=== PATIENT | female | born 1955 | race Caucasian/White ===

== ENCOUNTER 2016-09-03 03:21 | Inpatient (IN) | payer OTHER ==
[~2016-09-03] VITALS: Ht 157.5 cm; Wt 89.4 kg
[~2016-09-03 03:21] MED LIST: ALBUTEROL2.5 MG/3 M INH/SOL; AZITHROMYCIN500 M3 PO; CHLORTHALIDONE25 M1 PO; COMBIVENT RESPIM4 GM PO; GUAIFENESIN ER600 MG PO; HUMALOG KW100 UNIT/1 SC; LANTUS SOL100 UNIT/1 SC; METFORMIN HCL750 M1 PO; MONTELUKAST SOD10 M1 PO; PREDNISONE10 M2 PO; SYMBICORT 16010.2 GM INH
--- NOTE | 2016-09-03 03:34 | NUR ---
SATS 96% AT THIS TIME, RESP TREATMENT IN PROGRESS
--- NOTE | 2016-09-03 03:34 | NUR ---
60 YO FEMALE TO ER FOR DIFF BREATHING. WAS SEEN IN WALK IN 2 DAYS AGO FOR PRODUCTIVE COUGH. WAS GIVEN PREDNISONE. PT ARRIVES TO ER ROOM 7, RA SATS 88%. RR 36, HR 120s ON MONITOR. PT PLACED ON NONREBREATHER, IGLESIA ROSA. TO BEDSIDE. PT DENIES PAIN. IV EST TO L HAND. PT MEDICATED WITH SOLUMEDROL AND MAGNESIUM INFUSING PER ORDER.
--- NOTE | 2016-09-03 03:53 | ED DYSPNEA/ASTHMA COMPLAINT ---
History of Present Illness General Chief Complaint: Wheezing/Asthma Stated Complaint: DIFF BREATHING 02 SAT 86% Source: patient, family, old records Exam Limitations: clinical condition Vital Signs & Intake/Output Vital Signs & Intake/Output Vital Signs Date Time Temp Pulse Resp B/P B/P Pulse O2 O2 Flow FiO2 Mean Ox Delivery Rate 09/03 512 98.6 96 20 143/80 98 Nasal 5.0L Cannula 09/03 035 98 09/03 034 97 09/03 336 98 Non ReBreather 09/03 033 95 09/03 0330 88 Room Air 09/03 0328 96.8 120 36 182/91 88 Room Air Allergies Coded Allergies: Penicillins (Severe, RASH 08/15/15) Reconcile Medications Albuterol Sulfate 2.5 MG/3 ML VIAL.NEB 1 Vial INH/EMMA Q4P PRN BREATHING PROBLEMS (Reported) Azithromycin 500 MG TABLET 500 MG PO DAILY@1630 BRONCHITIS Budesonide/Formoterol Fumarate (Symbicort 160-4.5 Mcg Inhaler) 10.2 GM HFA.AER.AD 2 PUF INH BID ASTHMA Chlorthalidone 25 MG TABLET 1 TAB PO DAILY HEART (Reported) Guaifenesin (Guaifenesin ER) 600 MG TAB.ER.12H 600 MG PO BID COUGH Insulin Glargine,Hum.rec.anlog (Lantus Solostar) 100 UNIT/1 ML INSULN.PEN 36 U SC QPM DIABETES (Reported) Insulin Lispro (Humalog Kwikpen U-100) (Unknown Strength) INSULN.PEN 0 SC SEE SLIDING SCALE DIABETES (Reported) Premeal blood sugar: less than 80: no insulin 80-150: no insulin 151-200: 2 units 201-250: 4 units 251-300: 6 units 301-350: 8 units 351-400: 10 units more than 400: 12 units Ipratropium/Albuterol Sulfate (Combivent Respimat Inhal [place]) 4 GM MIST.INHAL 2 PUFF PO BID BREATHING PROBLEMS (Reported) Metformin HCl (Metformin HCl ER) 750 MG TAB.ER.24H 2 TAB PO QPM DIABETES ( Reported) Montelukast Sodium 10 MG TABLET 10 MG PO AT BEDTIME ASTHMA Prednisone 10 MG TABLET 6 TAB PO DAILY COPD 08/18-8: 6 TABS 08/20-08/21: 5 TABS 08/22-12: 4 TABS 6/13-14: 3 TABS 15-16: 2 TABS 08/28-18: 1 TAB Triage Note: 60 YO FEMALE TO ER FOR DIFF BREATHING. WAS SEEN IN WALK IN 2 DAYS AGO FOR PRODUCTIVE COUGH. WAS GIVEN PREDNISONE. PT ARRIVES TO ER ROOM 7, RA SATS 88%. RR 36, HR 120s ON MONITOR. PT PLACED ON NONREBREATHER, REESP PAGED. MD TO BEDSIDE. PT DENIES PAIN. IV EST TO L HAND. PT MEDICATED WITH SOLUMEDROL AND MAGNESIUM INFUSING PER ORDER. Triage Nurses Notes Reviewed? yes Duration: day(s):, constant, continues in ED, getting worse Timing: recent history Severity: severe Activities at Onset: rest Prior Episodes/Possible Cause: occasional episodes Modifying Factors: Improves With: rest. Worsens With: movement. Associated Symptoms: cough, wheezing, weakness LMP (ages 10-50): post menopausal : No Patient currently breastfeeds: No HPI: 2 days prior to admission spouse reports patient had productive cough and increasing wheezing prescribed prednisone at a walk-in center. There has been no fever chills nausea vomiting diarrhea chest pain headache dysuria rash bleeding. Past History Travel History Traveled to [place] past 21 day No Medical History Any Pertinent Medical History? 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 No Review of Systems Review of Systems Constitutional: Reports: no symptoms. EENTM: Reports: no symptoms. Respiratory: Reports: see HPI, cough, short of breath, sputum production. Cardiovascular: Reports: no symptoms. GI: Reports: no symptoms. Genitourinary: Reports: no symptoms. Musculoskeletal: Reports: no symptoms. Skin: Reports: no symptoms. Neurological/Psychological: Reports: no symptoms. Hematologic/Endocrine: Reports: no symptoms. Immunologic/Allergic: Reports: no symptoms. All Other Systems: Reviewed and Negative Physical Exam Physical Exam General Appearance: well developed/nourished, alert, awake, anxious, severe distress, thin Head: atraumatic, normal appearance Eyes: Bilateral: normal appearance, PERRL, EOMI. Ears, Nose, Throat: normal pharynx, normal ENT inspection, hearing grossly normal Neck: normal inspection, supple, full range of motion, no midline tenderness Respiratory: chest non-tender, no respiratory distress Cardiovascular: regular rate/rhythm, normal peripheral pulses, tachycardia, norml femoral pulses equa Peripheral Pulses: 4+ carotid (R), 4+ carotid (L) Gastrointestinal: normal bowel sounds, soft, non-tender, no organomegaly Extremities: normal inspection, normal capillary refill, normal range of motion, no edema Neurologic/Psych: no motor/sensory deficits, awake, alert, oriented x 3, normal gait, normal mood/affect, transport 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 No Severe Sepsis Present: No Septic Shock Present: No Progress Differential Diagnosis: asthma, bronchitis, COPD, pneumonia Plan of Care: Orders Procedure Date/time Status Consistent Carbohydrate 3 09/03 B Active US-LIMITED ABDOMEN 09/03 0533 Active LOWER RESPIRATORY CULTURE 09/03 0525 Active Patient Data 09/03 0523 Active TRC EVALUATION (GEN) 09/03 0520 Active FingerStick- Glucose 09/03 0515 Active OXYGEN SETUP (GEN) 09/03 0459 Active Saline Lock 09/03 045 Active Admit to inpatient 09/03 0459 Active Vital Signs 09/03 0459 Active Activity/Ambulation 09/03 0459 Active BLOOD CULTURE 09/03 0459 Active Code Status 09/03 0459 Active Intake & Output 09/03 0342 Active TROPONIN LEVEL 09/03 0331 Complete MAGNESIUM 09/03 0331 Complete COMPREHENSIVE METABOLIC PANEL 09/03 0331 Complete CBC WITHOUT DIFFERENTIAL 09/03 033 Complete Current Medications Sig/Fred Start time Last Medication Dose Stop Time Status Admin Budesonide/ 2 PUF BID 09/03 1000 UNVr Formoterol Fumarate (Symbicort) Guaifenesin 600 MG BID 09/03 1000 UNVr (Mucinex) Insulin Aspart 0 TIDAC 09/03 0800 UNVr (NovoLOG) Methylprednisolone 40 MG Q8 09/03 0600 UNVr (Solumedrol) Albuterol Sulfate 3 ML Q4P PRN 09/03 529 UNVr (Proventil) Insulin Detemir 30 UNITS .[AT BED TIME] 09/03 529 UNVr (Levemir) Doxycycline Hyclate 100 MG ONCE ONE 09/03 0500 AC 09/03 (Vibramycin) 09/03 06 0539 Sodium Chloride 100 ML (Normal Saline 0.9%) Sodium Chloride 1,000 ML BOLUS ONE 09/03 050 AC 09/03 (Normal Saline 0.9%) 09/03 0559 0514 Laboratory Tests 09/03/16 0350: Anion Gap 17 H, Estimated GFR > 60, BUN/Creatinine Ratio 32.0 H, Glucose 497 H, Calcium 9.1, Magnesium 2.6 H, Total Bilirubin 1.4 H, AST 218 H, ALT 187 H , Alkaline Phosphatase 113, Troponin I < 0.01, Total Protein 7.5, Albumin 4.6, Globulin 2.9, Albumin/Globulin Ratio 1.6, CBC w Diff NO MAN DIFF REQ, RBC 4.55, MCV 88.9, MCH 29.5, RDW 13.4, MPV 7.7, Gran % 89.2 H, Lymphocytes % 8.2 L, Monocytes % 2.3, Eosinophils % 0.2, Basophils % 0.1, Absolute Granulocytes 9.7 H, Absolute Lymphocytes 0.9 L, Absolute Monocytes 0.2, Absolute Eosinophils 0, Absolute Basophils 0, PUBS MCHC 33.2 Microbiology 09/03 524 LOWER RESP: Respiratory Culture - COLB 09/03 524 LOWER RESP: Gram Stain - COLB 09/03 522 BLOOD: Blood Culture - RECD 09/03 514 BLOOD: Blood Culture - RECD Diagnostic Imaging: Viewed by Me: Radiology Read. Discussed w/RAD: Radiology Read. CXR Impression: No focal consolidation. Prominent central interstitium may reflect acute or chronic bronchitis; mild central congestion would be difficult to exclude in the proper clinical setting. Initial ED EKG: normal axis, normal intervals, normal p-waves, normal QRS complex, normal sinus rhythm, nonspecific ST T wave chg Prior EKG: unchanged Rhythm Strip: sinus tachycardia Departure Departure Disposition: STILL A PATIENT Condition: Stable Clinical Impression Primary Impression: Asthma with acute exacerbation in adult Secondary Impressions: Bronchitis Referrals: JULIUS PRUITT MD Departure Forms: Customer Survey General Discharge Information Admission Note Spoke With: OPAL ABRAHAM MD Documentation of Exam: Documentation of any treatments & extenuating circumstances including Concerns Regarding Discharge (functional status, medication knowledge or non-compliance, living conditions, etc.) that warrant an admission rather than observation: Supplemental oxygen beta agonist nebs IV steroids follow cultures pulmonary evaluation medication adjustment continuing care discharge planning Critical Care Note Critical Care Note Critical Care Time: non-applicable
--- NOTE | 2016-09-03 03:53 | NUR ---
BLOODWORK DRAWN AND SENT TO LAB.
--- NOTE | 2016-09-03 04:02 | NUR ---
RESP TREATMENT COMPLETE AT THIS TIME, RR 22 AT THIS TIME. PT PLACED ON NASAL CANNULA 5L. SATS 97-98% AT THIS TIME. PT ABLE TO SPEAK FULL SENTANCES AND STATES SHE IS FEELING MUCH BETTER.
[2016-09-03 04:03] LABS: ABSOLUTE BASOPHIL COUNT 0 /CUMM (0.0-0.2); ABSOLUTE EOSINOPHIL COUNT 0 /CUMM (0.0-0.7); ABSOLUTE GRANULOCYTE CT 9.7 /CUMM (1.4-6.5); ABSOLUTE LYMPH COUNT 0.9 /CUMM (1.2-3.4); ABSOLUTE MONOCYTE COUNT 0.2 /CUMM (0.10-0.60); BASOPHIL % 0.1 % (0.0-2.0); EOSINOPHIL % 0.2 % (0-5); GRANULOCYTE % 89.2 % (42.2-75.2); HEMATOCRIT 40.4 % (37-47); MEAN CORPUSCULAR HGB 29.5 PG (27.0-31.0); MEAN CORPUSCULAR HGB CONC 33.2 G/DL (33.0-37.0); MEAN CORPUSCULAR VOLUME 88.9 FL (81.0-99.0); MEAN PLATELET VOLUME 7.7 FL (7.4-10.4); PLATELET COUNT 234 /CUMM (130-400); RBC DISTRIBUTION WIDTH 13.4 % (11.5-14.5); RED BLOOD CELL CT 4.55 /CUMM (4.20-5.40); WHITE BLOOD CELL COUNT 10.9 /CUMM (4.8-10.8)
--- NOTE | 2016-09-03 04:26 | NUR ---
PT UP TO BEDSIDE COMMODE. SATS REMAINED 95% ON 5L OXYGEN. PT REMAINS ABLE TO SPEAK FULL SENTANCES THROUGHOUT MOVING AROUND. HR 100 ON MONITOR.
--- NOTE | 2016-09-03 04:42 | RADIOLOGY REPORT ---
EXAMINATION: XR PORTABLE CHEST CLINICAL INFORMATION: Shortness of breath, wheezing, history of asthma COMPARISON: 08/18/2015 TECHNIQUE: Portable frontal view of the chest was obtained. FINDINGS: Lung volumes are symmetric. No focal consolidation is seen. There is prominence of the central interstitium, which could reflect sequelae of bronchitis. No evidence of pneumothorax, pleural effusion, or overt pulmonary edema. The cardiac silhouette is prominent. No acute osseous findings are seen. IMPRESSION: No focal consolidation. Prominent central interstitium may reflect acute or chronic bronchitis; mild central congestion would be difficult to exclude in the proper clinical setting.
--- NOTE | 2016-09-03 05:14 | NUR ---
NS BOLUS INFUSING PER EMAR. TOLERATING WELL. PATIENT MEDICATED W/ 10 UNITS NOVOLIN R IV PER EMAR. TOLERATED WELL. PHARMACY PREPARING DOXYCYCLINE IV.
--- NOTE | 2016-09-03 05:34 | History & Physical ---
JAE GRAVES 09/03/16 0533: General Information and HPI MD Statement: I have seen and personally examined SINGH SANTIAGO and documented this H&P. The patient is a 60 year old F who presented with a patient stated chief complaint of SHORTNESS OF BREATH Source of Information: patient, old records Exam Limitations: no limitations History of Present Illness: 60 year old woman, former smoker, past medical history significant for insulin dependant diabetes mellitus questionable COPD, history of asthma followed by Dr. Warren, no h/o of previous intubation in the past, history of pancreatic cyst, JASMINE (imaging done at [facility] last year) and hypertension comes to ED for evaluation of shortness of breath. Her symptoms started on Tuesday with a non productive cough which became a harsh barking type of cough with clear sputum the following day. She went to urgent care on Tuesday as was given medrol dee and cough suppressant. She felt no relief and started to have wheezing and her sputum became yellowish yesterday. Went to walk in yesterday and was not given anything. She continued to have progressively worsening shortness of breath and wheezing till she decided to come to the ED at 3:30am. 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 Last week she had non bloody self-limiting diarrhea of 5 day duration after eating at [employer]. Denies fever, chills, chest pain, palpitations, headache, n/v/d, constipation or abdominal pain. Allergies/Medications Allergies: Coded Allergies: Penicillins (Severe, RASH 08/15/15) Home Med list Albuterol Sulfate 2.5 MG/3 ML VIAL.NEB 1 Vial INH/EMMA Q4P PRN BREATHING PROBLEMS (Reported) Azithromycin 500 MG TABLET 500 MG PO DAILY@1630 BRONCHITIS Budesonide/Formoterol Fumarate (Symbicort 160-4.5 Mcg Inhaler) 10.2 GM HFA.AER.AD 2 PUF INH BID ASTHMA Chlorthalidone 25 MG TABLET 1 TAB PO DAILY HEART (Reported) Guaifenesin (Guaifenesin ER) 600 MG TAB.ER.12H 600 MG PO BID COUGH Insulin Glargine,Hum.rec.anlog (Lantus Solostar) 100 UNIT/1 ML INSULN.PEN 36 U SC QPM DIABETES (Reported) Insulin Lispro (Humalog Kwikpen U-100) (Unknown Strength) INSULN.PEN 0 SC SEE SLIDING SCALE DIABETES (Reported) Premeal blood sugar: less than 80: no insulin 80-150: no insulin 151-200: 2 units 201-250: 4 units 251-300: 6 units 301-350: 8 units 351-400: 10 units more than 400: 12 units Ipratropium/Albuterol Sulfate (Combivent Respimat Inhal [place]) 4 GM MIST.INHAL 2 PUFF PO BID BREATHING PROBLEMS (Reported) Metformin HCl (Metformin HCl ER) 750 MG TAB.ER.24H 2 TAB PO QPM DIABETES ( Reported) Montelukast Sodium 10 MG TABLET 10 MG PO AT BEDTIME ASTHMA Prednisone 10 MG TABLET 6 TAB PO DAILY COPD 08/18-08/19: 6 TABS 08/20-08/21: 5 TABS 08/22-08/23: 4 TABS 08/24-08/25: 3 TABS 08/26-16: 2 TABS 08/28-08/29: 1 TAB Compliance With Home Meds: GOOD Past History Travel History Traveled to [place] past 21 day No Medical History Neurological: NONE EENT: NONE Cardiovascular: HEART MURMUR Respiratory: asthma Gastrointestinal: NONE Hepatic: NONE Renal: NONE Musculoskeletal: NONE Psychiatric: NONE Endocrine: diabetes Blood Disorders: NONE Cancer(s): NONE 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 spouse Services at Home: None Primary Language: Telugu Smoking Status: Former Smoker ETOH Use: occasional use Functional Ability ADLs Independent: dressing, eating, toileting, bathing. Ambulation: independent IADLs Independent: shopping, housework, finances, food prep, telephone, transportation , medication admin. Review of Systems Review of Systems Constitutional: Denies: chills, diaphoresis, fever, malaise, weakness, unexplained weight loss. Cardiovascular: Denies: chest pain, edema, orthopena, palpitations, peripheral edema, syncope. Respiratory: Reports: cough, short of breath, sputum production, wheezing. Denies: hemoptysis, orthopnea, stridor. GI: Denies: abdominal pain, bloating, constipation, diarrhea, distention, bowel incontinence, melena, nausea, bloody stool, changes in stool, vomiting, steatorrhea. Genitourinary: Denies: discharge, dysuria, frequency, hematuria, hesitation, nocturia, pain, urgency. Exam & Diagnostic Data Last 24 Hrs of Vital Signs/I&O Vital Signs Date Time Temp Pulse Resp B/P B/P Pulse O2 O2 Flow FiO2 Mean Ox Delivery Rate 09/03 0513 98.6 96 20 143/80 98 Nasal 5.0L Cannula 09/03 0356 98 09/03 0345 97 09/03 0337 98 Non ReBreather 09/03 0334 95 09/03 0330 88 Room Air 09/03 0328 96.8 120 36 182/91 88 Room Air Intake & Output 09/03 0800 09/03 0000 09/02 1600 Intake Total 0 Output Total Balance 0 Intake, Oral 0 Patient 197 lb Weight Weight Reported by Patient Measurement Method Physical Exam General Appearance Alert, Oriented X3, Cooperative, Mild Distress Skin psoriatic plaques on b/l arms and legs HEENT Atraumatic, PERRLA, dry mucous membranes Neck Supple Lymphatic Cervical nl Cardiovascular Normal S1, Normal S2, tachycardic Lungs b/l coarse rhonchi and exp wheeze heard in all areas Abdomen No Tenderness, distended Extremities No Edema Last 24 Hrs of Labs/Tomasz: Laboratory Tests 09/03/16 0600: Sodium Cancelled, Potassium Cancelled, Chloride Cancelled, Carbon Dioxide Cancelled, Anion Gap Cancelled, BUN Cancelled, Creatinine Cancelled, BUN/ Creatinine Ratio Cancelled, CBC w Diff Cancelled, WBC Cancelled, RBC Cancelled, Hgb Cancelled, Hct Cancelled, MCV Cancelled, MCH Cancelled, RDW Cancelled, Plt Count Cancelled, MPV Cancelled, PUBS MCHC Cancelled 09/03/16 0350: Anion Gap 17 H, Estimated GFR > 60, BUN/Creatinine Ratio 32.0 H, Glucose 497 H, Calcium 9.1, Magnesium 2.6 H, Total Bilirubin 1.4 H, AST 218 H, ALT 187 H , Alkaline Phosphatase 113, Troponin I < 0.01, Total Protein 7.5, Albumin 4.6, Globulin 2.9, Albumin/Globulin Ratio 1.6, CBC w Diff NO MAN DIFF REQ, RBC 4.55, MCV 88.9, MCH 29.5, RDW 13.4, MPV 7.7, Gran % 89.2 H, Lymphocytes % 8.2 L, Monocytes % 2.3, Eosinophils % 0.2, Basophils % 0.1, Absolute Granulocytes 9.7 H, Absolute Lymphocytes 0.9 L, Absolute Monocytes 0.2, Absolute Eosinophils 0, Absolute Basophils 0, PUBS MCHC 33.2 Microbiology 09/03 524 LOWER RESP: Respiratory Culture - COLB 09/03 524 LOWER RESP: Gram Stain - COLB 09/03 522 BLOOD: Blood Culture - RECD 09/03 514 BLOOD: Blood Culture - RECD Diagnostic Data CXR Results FINDINGS: Lung volumes are symmetric. No focal consolidation is seen. There is prominence of the central interstitium, which could reflect sequelae of bronchitis. No evidence of pneumothorax, pleural effusion, or overt pulmonary edema. The cardiac silhouette is prominent. No acute osseous findings are seen. IMPRESSION: No focal consolidation. Prominent central interstitium may reflect acute or chronic bronchitis; mild central congestion would be difficult to exclude in the proper clinical setting. Assessment/Plan Assessment: 60 year old woman, former smoker, past medical history significant for insulin dependant diabetes mellitus questionable COPD, history of asthma followed by Dr. Warren, no h/o of previous intubation in the past, history of pancreatic cyst, JASMINE (imaging done at [facility] last year) and hypertension comes to ED for evaluation of shortness of breath. In ED she was found to be desaturating to 88% on RA and improved on non rebreather and nebs to 98% on 5L NC. Labs significant for Transaminitis, elevated serum glucose, CXR significant for prominent central interstitium may reflect acute or chronic bronchitis. As Ranked By This Provider Problem List: 1. Asthma with acute exacerbation in adult Assessment/Plan -Acute asthma exacerbation secondary to possible bronchitis -Admit to tele for continuous pulse oximetry -ATC TRC/nebs, continue supplemental oxgen -Monitor peak expiratory flow rate daily -Recieved 125 mg of IV Solumedrol in ED, will continue with IV 40mg daily -Given one time dose of Doxycyline, will continue with IV azithromycin, f/up bld cultures -Pulmonary consult in am ( sees Dr. Warren and saw him last 6 mths ago) -Her Last PFt was in 2012 and showed a mixed combined restrictive and obstructive pattern. 2. Transaminitis Assessment/Plan Had imaging done one year ago at [facility] and was told she has fatty liver along with a pancreatic cyst and was told to lose weight. she is aware that her liver enz are usually elevated. Denies worsening distension or abdominal pain Obtain records from [facility] f/up abd US and trend Liver enz 3. Diabetes Assessment/Plan -Accuchecks -Continue long acting insulin and ISS -Elevated glucose possibly secondary to recent steroid use -Diabetic diet -f/up HA1c 4. DVT prophylaxis Assessment/Plan sc heparin 5. Full code status Core Measures/Miscellaneous Acute Coronary Syndrome ACS Diagnosis: No Cerebrovascular Accident CVA/TIA Diagnosis: No Congestive Heart Failure CHF Diagnosis: No VTE (View Protocol) VTE Risk Factors: Acute medical illness, Age > 40 No [facility] VTE prophylaxis d/t: No contraindications No VTE Pharm Prophylaxis d/t: No contraindications VTE Diagnosis: No VTE Type: NONE VTE Confirmed by (Test): NONE Sepsis (View Protocol) Severe Sepsis Present: No Septic Shock Septic Shock Present: No Miscellaneous Documentation Attending Case Discussed With: OPAL ABRAHAM MD Primary Care Physician: PATIENT HAS NO PRIMARY CARE DR Patient sees these Specialists Dr. Warren Level of Patient Care: Telemetry NEETA BETANCOURT 09/03/16 0645: Resident Review Statement Resident Statement: examined this patient, discussed with internal combustion engine assembler, agreed with internal combustion engine assembler, reviewed images Other Findings: Patient is 60 year old female with PMH of asthma, diabetes, pancreatic cyst, colon adenoma came with chief complain of difficulty breathing. Patient states that since past 4 days, she has been having difficulty breathing and she started wheezing on Tuesday. At that time she went to urgent care and was prescribed Medrol dose pack and instructed to come to ER. Patient went home and she reports that her difficulty breathing has been worsening since then. Labs and Vitals as above CXR significant for acute v/s chronic bronchitis. Patient is admitted to telemetry for continuous pulse oximetry. Please follow up BC x 2 and sputum culture. Will start azithromycin for 5 days. Patient got solumedrol 125 mg in ER, will continue on 40 mg q8. TRC nebs as needed. Patient continued on her home medications. Patient has very tense abdomen, she had diarrhea last week after eating something from outside. The diarrhea and abdominal cramps have improved. Patient states that her abdomen is like that since [address] now[address] had [address] abdomen done at [facility] 2 years ago, please obtain records. Will get usg abdomen to evaluate biliary tree and liver mnorphology given her transaminitis. DVT ppx SC heprin Patient is full code. ANH BAPTISTE,ABEL 09/03/16 1209: Attending MD Review Statement Attending Statement Attending MD Statement: examined this patient, discuss w/resident/PA/SOIL ENGINEER, agreed w/resident/PA/SOIL ENGINEER, reviewed EMR data (avail), discussed with nursing, discussed with case mgmt Attending Assessment/Plan: 60-year-old female past medical history of COPD actively follows with Dr. Warren in the outpatient setting, had a PCP associated with [facility] who recently and has an alumnae secretary associated with [facility]. She is here with what appears to be an acute COPD exacerbation and she failed outpatient Medrol Dosepak given to her by the urgent care clinic. In addition she also has evidence of uncontrolled diabetes with mild anion gap acidosis and severe hyperglycemia. The chest x-ray is negative for pneumonia but does show some interstitial vascular congestion and probable bronchitis. At this point will bring her in and treat her as a COPD exacerbation with IV steroids and will also give her azithromycin to cover for the possibility of bacterial bronchitis. We do not have her Trullicity which she takes for her diabetes and with the steroids on board she will need additional insulin coverage. Will give her long-acting and short-acting insulin and aggressive IV hydration until the hyperglycemia and anion gap resolve. Will check labs again and specifically check acetone as well. I don't think this is heart failure, she is got all the clinical signs and symptoms of a COPD exacerbation and at this point will check a BNP but will hold off on an echocardiogram. Put her on DVT prophylaxis, follow the abdominal ultrasound for the elevated transaminases which she says is secondary to fatty liver and follow closely.
--- NOTE | 2016-09-03 05:41 | NUR ---
DOXYCYCLINE RECIEVED FROM PHARMACY. DOXYCYCLINE INFUSUNG AT 100ML/HR PER EMAR. TOLERATING WELL.
--- NOTE | 2016-09-03 05:49 | NUR ---
HOUSE STAFF AT BESIDE FOR EVAL
--- NOTE | 2016-09-03 06:04 | NUR ---
REPORT GIVEN TO RN, PT WILL GO TO ROOM 188
--- NOTE | 2016-09-03 06:12 | NUR ---
Emergency Dept UC Admit Note: To be admitted to [facility] by DR. ABRAHAM with ASTHMA EXACERBATION ,HYPOXIA as the diagnosis, to TELE 1NO #[id number] location. Nursing Donor Services Manager and admitting notified 09/03/16 at 0524
[2016-09-03 06:40] VITALS: BP 128/78
[2016-09-03 08:55] VITALS: BP 144/90
--- NOTE | 2016-09-03 09:46 | ULTRASOUND REPORT ---
EXAMINATION: US ABDOMEN LIMITED CLINICAL INFORMATION: Elevated LFTs and bilirubin.. COMPARISON: None. TECHNIQUE: Real-time imaging of the right upper quadrant abdominal viscera. Technically challenging exam secondary to patient body habitus and bowel gas. FINDINGS: PANCREAS: The partially visualized pancreatic body is unremarkable, the head and tail are secured by bowel gas. LIVER: There is diffuse increased liver parenchymal echogenicity. The liver is normal in size and contour. No biliary ductal dilatation. GALLBLADDER: Normal. The gallbladder is physiologically distended without evidence of stones, sludge, polyps, wall thickening or pericholecystic fluid. COMMON BILE DUCT: Normal in caliber measuring 0.42 cm in diameter. RIGHT KIDNEY: Normal. No hydronephrosis. No renal calculi or focal parenchymal lesions. The kidney measures 9.7 cm in maximum dimension. FREE FLUID: None. IMPRESSION: Diffusely increased hepatic echotexture, this can be seen in hepatic steatosis or developing fibrosis. The pancreas is not well visualized.
--- NOTE | 2016-09-03 11:45 | NUR ---
PT WAS NEW ADMISSION THIS AM. WAITING FOR MORNING MEDS TO GIVE TO PT. MISSING MED REQUEST SENT TO PHARMACY AT 10:45. CALL PLACED TO [facility] PHARMACIST AT 11:25 REQUESTING MEDS. STATES WILL SEND MEDS ANGELIA
--- NOTE | 2016-09-03 12:09 | Admission Certification ---
Admission Certification Certification Statement - As attending physician, I certify that at the time of - admission, based on clinical presentation, severity of - symptoms, need for further diagnostic testing and - therapeutic interventions, and risk of adverse outcomes - without in-hospital treatment, in my clinical assessment, - this patient requires an acute hospital stay for a minimum - of two nights or longer. I have also considered psychsocial - factors such as support system, advanced age, financial - issues, cognitive issues, and failed out-patient treatments, - past re-admission history, safety of patient, and lack of - compliance as applicable. Specific rationale supporting this admission is: Acute COPD exacerbation failed outpatient oral steroids.
--- NOTE | 2016-09-03 14:57 | PN- Housestaff ---
Subjective Follow-up For: Acute COPD exacerbation Subjective: Patient is feeling little improved. She is still on 5 L of oxygen by nasal cannula. Denies any chest pain or discomfort. Review of Systems Constitutional: Reports: see HPI. Objective Last 24 Hrs of Vital Signs/I&O Vital Signs Date Time Temp Pulse Resp B/P B/P Pulse O2 O2 Flow FiO2 Mean Ox Delivery Rate 09/03 1032 Nasal 2.0L Cannula 09/03 0855 97.8 99 20 144/90 99 Nasal 5.0L Cannula 09/03 0800 97 Nasal 5.0L Cannula 09/03 0640 Nasal 5.0L Cannula 09/03 0640 97.7 96 24 128/78 98 Nasal 5.0L Cannula 09/03 0513 98.6 96 20 143/80 98 Nasal 5.0L Cannula 09/03 0356 98 09/03 0345 97 09/03 0337 98 Non ReBreather 09/03 0334 95 09/03 0330 88 Room Air 09/03 0328 96.8 120 36 182/91 88 Room Air Intake & Output 09/03 1600 09/03 0800 09/03 0000 Intake Total 1120 0 Output Total 250 Balance 870 0 Intake, IV 400 Intake, Oral 720 0 Output, Urine 250 Patient 197 lb Weight Weight Reported by Patient Measurement Method Physical Exam General Appearance: Alert, Oriented X3, Cooperative, No Acute Distress Neck: Supple Cardiovascular: Regular Rate, No Murmurs Lungs: bilateral rhonchi and wheezes Abdomen: Normal Bowel Sounds, Soft, No Tenderness Extremities: No Edema Current Medications: Current Medications Sig/Fred Start time Last Medication Dose Route Stop Time Status Admin Albuterol Sulfate 3 ML EVERY 4 HRS/AWAKE 09/03 1200 AC 09/03 INH 1045 Albuterol Sulfate 3 ML Q4P PRN 09/03 0530 DC INH Albuterol Sulfate 3 ML ONCE ONE 09/03 0330 DC 09/03 INH 09/03 0331 0337 Albuterol Sulfate 3 ML ONCE ONE 09/03 0330 DC 09/03 INH 09/03 0331 0337 Albuterol Sulfate 3 ML ONCE ONE 09/03 0330 DC 09/03 INH 09/03 0331 0337 Atorvastatin Calcium 20 MG 1700 09/03 1700 AC PO Azithromycin 500 MG DAILY 09/03 1000 AC 09/03 Sodium Chloride 250 ML IV 1215 Budesonide/ 2 PUF BID 09/03 1000 AC 09/03 Formoterol Fumarate INH 1215 Doxycycline Hyclate 100 MG ONCE ONE 09/03 0500 DC 09/03 Sodium Chloride 100 ML IV 09/03 0605 0539 Guaifenesin 600 MG BID 09/03 1000 AC 09/03 PO 1215 Heparin Sodium 5,000 UNIT Q8 09/03 1400 AC 09/03 (Porcine) SC 1348 Insulin Aspart 0 TIDAC 09/03 1200 AC 09/03 SC 1139 Insulin Aspart 0 TIDAC 09/03 0800 DC SC Insulin Detemir 30 UNITS AT BEDTIME 09/03 2200 AC SC Insulin Human Regular 0 Q6 09/03 0806 DC 09/03 SC 0819 Insulin Human Regular 10 UNITS ONCE ONE 09/03 0500 DC 09/03 IV 09/03 0501 0514 Ipratropium [place] 2.5 ML EVERY 4 HRS/AWAKE 09/03 1200 AC 09/03 INH 1045 Ipratropium [place] 2.5 ML BID PRN 09/03 0630 DC INH Ipratropium [place] 2.5 ML ONCE ONE 09/03 0330 DC 09/03 INH 09/03 0331 0336 Magnesium Sulfate 2 GM ONCE ONE 09/03 0330 DC 09/03 IV 09/03 0331 0334 Methylprednisolone 40 MG Q8 09/03 0600 AC 09/03 IV 1347 Methylprednisolone 0 .STK-MED ONE 09/03 0332 DC .ROUTE Methylprednisolone 125 MG ONCE ONE 09/03 0330 DC 09/03 IV 09/03 0331 0332 Pregabalin 75 MG BID 09/03 1000 AC 09/03 PO 1215 Sodium Chloride 1,000 ML Q10H 09/03 0930 AC 09/03 IV 1014 Sodium Chloride 1,000 ML BOLUS ONE 09/03 0500 DC 09/03 IV 09/03 0559 0514 Last 24 Hrs of Lab/Tomasz Results Last 24 Hrs of Labs/Mics: Laboratory Tests 09/03/16 1359: Urine Color Pending, Urine Clarity Pending, Urine pH Pending, Ur Specific [place] Pending, Urine Protein Pending, Urine Ketones Pending, Urine Nitrite Pending, Urine Bilirubin Pending, Urine Urobilinogen Pending, Ur Leukocyte Esterase Pending, Ur Microscopic Pending, Urine Hemoglobin Pending, Urine Glucose Pending 09/03/16 1055: Acetone Level Cancelled 09/03/16 1055: Anion Gap 15, Estimated GFR > 60, BUN/Creatinine Ratio 28.0 H, Acetone Level NEGATIVE 09/03/16 0600: Sodium Cancelled, Potassium Cancelled, Chloride Cancelled, Carbon Dioxide Cancelled, Anion Gap Cancelled, BUN Cancelled, Creatinine Cancelled, BUN/ Creatinine Ratio Cancelled, CBC w Diff Cancelled, WBC Cancelled, RBC Cancelled, Hgb Cancelled, Hct Cancelled, MCV Cancelled, MCH Cancelled, RDW Cancelled, Plt Count Cancelled, MPV Cancelled, PUBS MCHC Cancelled 09/03/16 0350: Anion Gap 17 H, Estimated GFR > 60, BUN/Creatinine Ratio 32.0 H, Glucose 497 H, Hemoglobin A1c 8.8 H, Calcium 9.1, Magnesium 2.6 H, Total Bilirubin 1.4 H, AST 218 H, ALT 187 H, Alkaline Phosphatase 113, Troponin I < 0.01, Total Protein 7.5, Albumin 4.6, Globulin 2.9, Albumin/Globulin Ratio 1.6, CBC w Diff NO MAN DIFF REQ, RBC 4.55, MCV 88.9, MCH 29.5, RDW 13.4, MPV 7.7, Gran % 89.2 H , Lymphocytes % 8.2 L, Monocytes % 2.3, Eosinophils % 0.2, Basophils % 0.1, Absolute Granulocytes 9.7 H, Absolute Lymphocytes 0.9 L, Absolute Monocytes 0.2, Absolute Eosinophils 0, Absolute Basophils 0, PUBS MCHC 33.2 Microbiology 09/03 524 LOWER RESP: Respiratory Culture - COLB 09/03 524 LOWER RESP: Gram Stain - COLB 09/03 522 BLOOD: Blood Culture - RECD 09/03 514 BLOOD: Blood Culture - RECD Assessment/Plan Assessment: 60 year old woman, former smoker, past medical history significant for insulin dependant diabetes mellitus, COPD, history of asthma followed by Dr. Warren, no h/o of previous intubation in the past, history of pancreatic cyst, JASMINE and hypertension. Problem list 1. Acute COPD exacerbation 2. Mild leukocytosis. Patient was on steroids as an outpatient 3. Hyperglycemia with anion gap acidosis. Acetone level negative 4. Elevated LFTs. Patien has history of fatty liver disease and follows a director epidemiology as outpt. Abdominal ultrasound shows hepatic steatosis or developing fibrosis PLAN * Monitor vitals closely * continue supplemental oxygen * Keep oxygen saturation more than 92% * Continue TRC nebs * Continue IV Solu-Medrol * Continue IV azithromycin * Follow blood and sputum cultures * Monitor LFTs daily. * Continue gentle IV hydration. Only one bag * DVT prophylaxis * Continue other home medications. Holding metformin and Trulicity * Accu-Cheks before each meal and at bedtime * Diabetic diet * Full code I called her outpatient book jacket cover machine operator Dr. Collier and told her about hyperglycemia in the setting of steroids and current management. According to her recommendations if she goes home without oxygen then we can resume her Truliicity and metformin and send her on Levemir 30 units at bedtime. And if she goes home with oxygen than hold metformin upon discharge and send her home with Trulicity, NovoLog insulin sliding scale and Levemir. Problem List: 1. COPD (chronic obstructive pulmonary disease) Pain Ratin Pain Location: none Pain Goal: Remain pain free Pain Plan: tylenol Tomorrow's Labs & Rationales: cbc,bep DVT/Prophylaxis: pharmacological
[2016-09-03 16:24] VITALS: BP 122/74
[2016-09-04 00:53] VITALS: BP 118/80
[2016-09-04 08:17] LABS: ABSOLUTE BASOPHIL COUNT 0 /CUMM (0.0-0.2); ABSOLUTE EOSINOPHIL COUNT 0 /CUMM (0.0-0.7); ABSOLUTE GRANULOCYTE CT 10.9 /CUMM (1.4-6.5); ABSOLUTE LYMPH COUNT 0.6 /CUMM (1.2-3.4); ABSOLUTE MONOCYTE COUNT 0.4 /CUMM (0.10-0.60); BASOPHIL % 0 % (0.0-2.0); EOSINOPHIL % 0 % (0-5); MEAN CORPUSCULAR HGB CONC 33.3 G/DL (33.0-37.0); MEAN CORPUSCULAR VOLUME 90.3 FL (81.0-99.0); MEAN PLATELET VOLUME 8.1 FL (7.4-10.4); PLATELET COUNT 241 /CUMM (130-400); RBC DISTRIBUTION WIDTH 13.4 % (11.5-14.5); RED BLOOD CELL CT 4.32 /CUMM (4.20-5.40); WHITE BLOOD CELL COUNT 11.9 /CUMM (4.8-10.8)
[2016-09-04 08:45] VITALS: BP 142/84
--- NOTE | 2016-09-04 08:56 | Patient Discharge Instructions ---
Discharge Instructions General Discharge Information You were seen/treated for: COPD exacerbation Special Instructions: 1. Please follow-up with her primary care provider after discharge 2. Please follow-up with Dr. Warren after discharge 3. Please follow-up with your machine binding folder after discharge 4. Please follow-up with your servomechanism designer after discharge 5. please followup with cardiologiast, Dr. Jasmine in one week Diet Continue normal diet: Yes Activity Full Activity/No Limits: No Acute Coronary Syndrome Inclusion Criteria At DC or during hospital stay patient has or had the following: ACS DIAGNOSIS No Discharge Core Measures Meds if any: Prescribed or Continued at Discharge Meds if any: NOT Prescribed or Continued at Discharge Congestive Heart Failure Inclusion Criteria At DC or during hospital stay patient has or had the following: CHF DIAGNOSIS No Discharge Core Measures Meds if any: Prescribed or Continued at Discharge Meds if any: NOT Prescribed or Continued at Discharge Cerebrovascular accident Inclusion Criteria At DC or during hospital stay patient has or had the following: CVA/TIA Diagnosis No Discharge Core Measures Meds if any: Prescribed or Continued at Discharge Meds if any: NOT Prescribed or Continued at Discharge Venous thromboembolism Inclusion Criteria VTE Diagnosis No VTE Type NONE VTE Confirmed by (Test) NONE Discharge Core Measures - Per Current guidelines, there needs to be overlap - treatment for the first 5 days of Warfarin therapy. - If discharged on Warfarin prior to 5 days of - overlap therapy, the patient will need to be - assessed for post discharge needs including - *Post discharge parental anticoagulation - *Warfarin and/or parental anticoagulation education - *Follow up date to check INR post discharge At least 5 days overlap therapy as Inpatient No Meds if any: Prescribed or Continued at Discharge Note: Overlap Therapy is Warfarin and Anticoagulant Meds if any: NOT Prescribed or Continued at Discharge
[2016-09-04] MEDS ORDERED: TRULICITY1.5 MG/0.5 SC (08:58)
[2016-09-04] MEDS ORDERED: LOSARTAN POTASS50 M1 PO (08:59)
[2016-09-04] MEDS ORDERED: CRESTOR40 M2 PO (09:01)
[2016-09-04] MEDS ORDERED: AZITHROMYCIN250 M1 PO (09:11)
[2016-09-04] MEDS ORDERED: PREDNISONE10 M2 PO (09:11)
[2016-09-04] MEDS ORDERED: LEVEMIR100 UNIT/1 SC (09:11)
[2016-09-04 09:45] LABS: GRANULOCYTE % 91.1 % (42.2-75.2)
--- NOTE | 2016-09-04 09:59 | PN- Housestaff ---
DONNA BAPTISTE,SANG 09/04/16 0959: Subjective Follow-up For: COPD acute exacerbation Complaints: no complaints Tele-Events Since Last Visit: off telemetry Subjective: Patient is seen and examined at the bedside. She was feeling much better. Although she was complaining of throbbing of the ears, sinus headache, and dry cough. We added antihistaminic to help with sinus congestion. She had an episodes of epistaxis, which relieved by nasal compression. Review of Systems Constitutional: Reports: no symptoms, weakness. EENTM: Reports: nasal congestion, epistaxis, nasal pain, throat pain. Respiratory: Reports: cough, short of breath, sputum production, wheezing. Objective Last 24 Hrs of Vital Signs/I&O Vital Signs Date Time Temp Pulse Resp B/P B/P Pulse O2 O2 Flow FiO2 Mean Ox Delivery Rate 09/04 1706 98.8 90 20 150/80 99 Nasal 7.0L Cannula 09/04 0845 98.0 98 20 142/84 98 Nasal 2.5L Cannula 09/04 0832 95 Nasal 3.0L Cannula 09/04 0800 98 Nasal 2.0L Cannula 09/04 0053 97.9 87 22 118/80 96 Nasal Cannula 09/04 0000 Nasal 2.0L Cannula 09/03 2356 96 Nasal 2.0L Cannula Intake & Output 09/04 1600 09/04 0800 09/04 0000 Intake Total 900 450 750 Output Total 400 Balance 900 450 350 Intake, IV 0 300 Intake, Oral 900 450 450 Number 0 0 Bowel Movements Output, Urine 400 Physical Exam General Appearance: Alert, Oriented X3, Cooperative, No Acute Distress, abdominal distension Cardiovascular: Normal S1, Normal S2 Lungs: bilateral wheezing and crackles Abdomen: Soft, No Tenderness Extremities: No Clubbing, No Cyanosis, mild non pitting Vascular: Normal Pulses, Pulses Symmetrical Current Medications: Current Medications Sig/Fred Start time Last Medication Dose Route Stop Time Status Admin Albuterol Sulfate 3 ML EVERY 4 HRS/AWAKE 09/03 1200 AC 09/04 INH 1640 Atorvastatin Calcium 20 MG 1700 09/03 1700 AC 09/04 PO 1739 Azithromycin 250 MG DAILY 09/04 1000 AC 09/04 PO 1007 Azithromycin 500 MG DAILY 09/03 1000 DC 09/03 Sodium Chloride 250 ML IV 1215 Budesonide/ 2 PUF BID 09/03 1000 AC 09/04 Formoterol Fumarate INH 0943 Guaifenesin 600 MG BID 09/03 1000 AC 09/04 PO 0942 Heparin Sodium 5,000 UNIT Q8 09/03 1400 AC 09/04 (Porcine) SC 1303 Insulin Aspart 0 TIDAC 09/03 1200 AC 09/04 SC 1739 Insulin Detemir 30 UNITS AT BEDTIME 09/03 2200 AC 09/03 SC 2045 Ipratropium [place] 2.5 ML EVERY 4 HRS/AWAKE 09/03 1200 AC 09/04 INH 1640 Loratadine 10 MG DAILY 09/04 1015 AC 09/04 PO 1207 Methylprednisolone 40 MG Q12H 09/04 1800 AC 09/04 IV 1740 Methylprednisolone 40 MG Q8 09/03 0600 DC 09/04 IV 0519 Pregabalin 75 MG BID 09/03 1000 AC 09/04 PO 0942 Last 24 Hrs of Lab/Tomasz Results Last 24 Hrs of Labs/Mics: Laboratory Tests 09/04/16 0710: Anion Gap 14, Estimated GFR > 60, BUN/Creatinine Ratio 28.3 H, Total Bilirubin 1.1, Direct Bilirubin 0.6 H, AST 85 H, ALT 155 H, Alkaline Phosphatase 90, Total Protein 7.0, Albumin 4.3, CBC w Diff NO MAN DIFF REQ, RBC 4.32, MCV 90.3, MCH 30.0, RDW 13.4, MPV 8.1, Gran % 91.1 H, Lymphocytes % 5.3 L, Monocytes % 3.6, Eosinophils % 0, Basophils % 0 L, Absolute Granulocytes 10.9 H, Absolute Lymphocytes 0.6 L, Absolute Monocytes 0.4, Absolute Eosinophils 0, Absolute Basophils 0, PUBS MCHC 33.3 09/04/16 0050: Troponin I 0.07 Assessment/Plan Assessment: 60 year old woman, former smoker, past medical history significant for insulin dependant diabetes mellitus, COPD, history of asthma followed by Dr. Warren, no h/o of previous intubation in the past, history of pancreatic cyst, JASMINE and hypertension. Problem list 1. Acute COPD exacerbation 2. Mild leukocytosis. Patient was on steroids as an outpatient 3. Hyperglycemia with anion gap acidosis. Acetone level negative 4. Elevated LFTs. Patien has history of fatty liver disease and follows a nutrition helper as outpt. Abdominal ultrasound shows hepatic steatosis or developing fibrosis PLAN * Monitor vitals closely * continue supplemental oxygen * Keep oxygen saturation more than 92% * Continue TRC nebs * Continue IV Solu-Medrol * Continue IV azithromycin * Follow blood and sputum cultures * Monitor LFTs daily. * DVT prophylaxis * Continue other home medications. Holding metformin and Trulicity * Accu-Cheks before each meal and at bedtime -blood sugars were - in range of 200 -300, we changed sliding scale to high dose sliding scale. * Diabetic diet - changed to carbohydrate -1 * Added loratidin and tesslon pearls * Full code According to her recommendations bridge expert Dr. Collier if she goes home without O2 then we can resume her Truliicity and metformin and send her on Levemir 30 units at bedtime. And if she goes home with oxygen than hold metformin upon discharge and send her home with Trulicity, NovoLog insulin sliding scale and Levemir. Problem List: 1. COPD (chronic obstructive pulmonary disease) 2. Diabetes Pain Ratin Pain Location: ears and sinuses Pain Goal: Remain pain free Pain Plan: mild to moderate Tomorrow's Labs & Rationales: LFT DVT/Prophylaxis: mechanical, pharmacological JARAD GONSALEZ 09/04/16 1124: Attending MD Review Statement Attending Statement Attending MD Statement: examined this patient, discuss w/resident/PA/FURNITURE INSPECTOR, agreed w/resident/PA/FURNITURE INSPECTOR, discussed with family, reviewed EMR data (avail), discussed with nursing, discussed with case mgmt, reviewed images, amended to note Attending Assessment/Plan: Patient here treated as COPD exacerbation with IV steroids, taper steroids and c /w her azithromycin. Diabetes unocntrolled and with the steroids on board, Titrate insulin as needed. AG closed but hyperglycemia +. cont current care gi/ dvt prophylaxis
--- NOTE | 2016-09-04 13:08 | Discharge Summary ---
Hospital Course Allergies: Coded Allergies: Penicillins (Severe, RASH 08/15/15) Discharge Instructions Medications at Discharge Discharge Medications: Stop taking the following medications: Insulin Lispro (Humalog Kwikpen U-100) (Unknown Strength) INSULN.PEN Inject into fatty tissue SEE SLIDING SCALE Days = 28 Insulin Glargine,Hum.rec.anlog (Lantus Solostar) 100 UNIT/1 ML INSULN.PEN Inject into fatty tissue Every night Qty = 15 Azithromycin (Azithromycin) 500 MG TABLET ORAL DAILY Days = 3 Prednisone (Prednisone) 10 MG TABLET ORAL DAILY Qty = 42 Continue taking these medications: Ipratropium/Albuterol Sulfate (Combivent Respimat Inhal [place]) 4 GM MIST.INHAL 2 PUFF ORAL TWICE DAILY Qty = 4 Comments: Last Taken: 08/18/15 Time: 11:30 AM Albuterol Sulfate (Albuterol Sulfate) 2.5 MG/3 ML VIAL.NEB 1 Vial Inhale Solution EVERY 4 HOURS NEEDED as needed for BREATHING PROBLEMS Qty = 540 Comments: Last Taken: 08/18/15 Time: 11:30 AM Chlorthalidone (Chlorthalidone) 25 MG TABLET 1 Tablet ORAL DAILY Qty = 30 Comments: Last Taken: 08/18/15 Time: 8:15 AM Metformin HCl (Metformin HCl ER) 750 MG TAB.ER.24H 2 Tablet ORAL Every night Qty = 60 Comments: NOT GIVEN IN HOSPITAL Budesonide/Formoterol Fumarate (Symbicort 160-4.5 Mcg Inhaler) 10.2 GM HFA.AER.AD 2 Puff Inhale through mouth TWICE DAILY Days = 28 Comments: Last Taken: 08/18/15 Time: 8:10 AM Montelukast Sodium (Montelukast Sodium) 10 MG TABLET 10 Milligram ORAL AT BEDTIME Days = 28 Comments: Last Taken: 08/17/15 Time: 8:30 PM Guaifenesin (Guaifenesin ER) 600 MG TAB.ER.12H 600 Milligram ORAL TWICE DAILY Days = 7 Comments: Last Taken: 08/18/15 Time: 8:10 AM Dulaglutide (Trulicity) 1.5 MG/0.5 ML PEN.INJCTR 1.5 Milligram Inject into fatty tissue QWK Qty = 4 Losartan Potassium (Losartan Potassium) 50 MG TABLET 1 Tablet ORAL DAILY Qty = 30 Rosuvastatin Calcium (Crestor) 40 MG TABLET 1 Tablet ORAL DAILY Qty = 30 Start taking the following new medications: Azithromycin (Azithromycin) 250 MG TABLET 1 Tablet ORAL DAILY Qty = 2 No Refills Insulin Detemir (Levemir) 100 UNIT/ML VIAL 30 Units Inject into fatty tissue AT BEDTIME Qty = 10 No Refills Prednisone (Prednisone) 10 MG TABLET 1 Tablet ORAL See Instructions Qty = 30 No Refills Instructions: 4 TABS X 3 DAYS 3 TABS X 3 DAYS 2 TABS X 3 DAYS 1 TAB X 3 DAYS AND THEN STOP
--- NOTE | 2016-09-04 14:23 | NUR ---
HYPERGLYCEMIA- NOTIFIED BY [facility] ACCUCHECK WAS 468 AT 11:20 AM. PT ASYMPTOMATIC AT THIS TIME. DR THOMPSON MADE AWARE [place] HYPERGLYCEMIA. PT MEDICATED PER EMAR WITH ARRIVAL OF LUNCH TRAY. ACCUCHECK DONE AGAIN AT 13:16 PM- BLOOD SUGAR 348. DR THOMPSON MADE AWARE. PER MD- ACCUCHECK SHOULD BE REPEATED AT SCHEDULED TIME BEFORE DINNER.
[2016-09-04 17:06] VITALS: BP 150/80
[2016-09-05 01:35] VITALS: BP 128/80
[2016-09-05 08:04] VITALS: BP 146/84
--- NOTE | 2016-09-05 09:16 | PN- Housestaff ---
SHELLY BAPTISTE,BEULAH 09/05/16 0916: Subjective Follow-up For: COPD exacerbation Complaints: wheezing Tele-Events Since Last Visit: off tele Subjective: I followed up and examined the patient today. She is resting at the edge of her bed, still utilizing additional oxygen via nasal cannula, is audibly wheezing, but can speak in full sentences. Her vitals have been stable, no overnight issues. Of note, today is her birthday! Review of Systems Constitutional: Reports: see HPI. Objective Last 24 Hrs of Vital Signs/I&O Vital Signs Date Time Temp Pulse Resp B/P B/P Pulse O2 O2 Flow FiO2 Mean Ox Delivery Rate 09/05 1723 94 Room Air Room Air 09/05 1647 97.8 76 20 130/68 95 Room Air 09/05 1120 97 Room Air 09/05 0804 97.6 88 20 146/84 98 Nasal 1.0L Cannula 09/05 0800 95 Room Air Room Air 09/05 0800 95 Room Air Room Air 09/05 0650 98 Nasal 2.0L Cannula 09/05 0135 97.9 88 20 128/80 99 Nasal Cannula 09/05 0000 96 Nasal 2.0L Cannula Intake & Output 09/05 1600 09/05 0800 09/05 0000 Intake Total 800 400 325 Output Total 350 Balance 800 50 325 Intake, Oral 800 400 325 Number 1 Bowel Movements Output, Urine 350 Physical Exam General Appearance: Alert, Oriented X3, Cooperative, No Acute Distress Other Physical Findings: Cardiovascular: Normal S1, Normal S2 Lungs: bilateral wheezing and crackles b/l, audible wheeze Abdomen: Soft, No Tenderness Extremities: No Clubbing, No Cyanosis, mild non pitting Vascular: Normal Pulses, Pulses Symmetrical Current Medications: Current Medications Sig/Fred Start time Last Medication Dose Route Stop Time Status Admin Albuterol Sulfate 3 ML EVERY 4 HRS/AWAKE 09/03 1200 AC 09/05 INH 2145 Atorvastatin Calcium 20 MG 1700 09/03 1700 AC 09/05 PO 1700 Azithromycin 250 MG DAILY 09/04 1000 AC 09/05 PO 1022 Benzonatate 100 MG TID 09/04 2200 AC 09/05 PO 2134 Budesonide/ 2 PUF BID 09/03 1000 AC 09/05 Formoterol Fumarate INH 2136 Guaifenesin 600 MG BID 09/03 1000 AC 09/05 PO 213 Heparin Sodium 5,000 UNIT Q8 09/03 1400 AC 09/05 (Porcine) SC 2144 Insulin Aspart 0 TIDAC 09/03 1200 AC 09/05 SC 1700 Insulin Detemir 30 UNITS AT BEDTIME 09/03 2200 AC 09/05 SC 213 Ipratropium [place] 2.5 ML EVERY 4 HRS/AWAKE 09/03 1200 AC 09/05 INH 1622 Loratadine 10 MG DAILY 09/04 1015 AC 09/05 PO 1022 Methylprednisolone 40 MG Q12H 09/04 1800 AC 09/05 IV 1703 Nystatin 5 ML 4 TIMES/DAY 09/05 1034 AC 09/05 PO 2133 Pregabalin 75 MG BID 09/03 1000 AC 09/05 PO 2134 Last 24 Hrs of Lab/Tomasz Results Last 24 Hrs of Labs/Mics: Laboratory Tests 09/05/16 0607: Total Bilirubin 1.0, Direct Bilirubin 0.7 H, AST 71 H, ALT 128 H, Alkaline Phosphatase 84, Total Protein 6.5, Albumin 4.1 Assessment/Plan Assessment: 60 year old woman, former smoker, past medical history significant for insulin dependant diabetes mellitus, COPD, history of asthma followed by Dr. Warren, no h/o of previous intubation in the past, history of pancreatic cyst, JASMINE and hypertension. Problem list 1. Acute COPD exacerbation 2. Mild leukocytosis. Patient was on steroids as an outpatient 3. Hyperglycemia with anion gap acidosis. Acetone level negative 4. Elevated LFTs. Patien has history of fatty liver disease and follows a manager documentation as outpt. Abdominal ultrasound shows hepatic steatosis or developing fibrosis PLAN * Monitor vitals closely * continue supplemental oxygen * Keep oxygen saturation more than 92% * Continue TRC nebs * Continue IV Solu-Medrol q12h today as she is still grossly/audibly wheezing * Continue IV azithromycin * Follow blood and sputum cultures * Monitor LFTs daily. * DVT prophylaxis * Continue other home medications. Holding metformin and Trulicity * Accu-Cheks before each meal and at bedtime, continue new insulin regimen * Diabetic diet - changed to carbohydrate -1 * Added loratidin and tesslon pearls * Full code According to her recommendations skin drier Dr. Collier if she goes home without O2 then we can resume her Truliicity and metformin and send her on Levemir 30 units at bedtime. And if she goes home with oxygen then hold metformin upon discharge and send her home with Traaron, NovoLog insulin sliding scale and Levemir. Problem List: 1. Asthma exacerbation 2. COPD (chronic obstructive pulmonary disease) 3. Diabetes 4. Transaminitis Pain Ratin Pain Location: - Pain Goal: Pain 4 or less Pain Plan: prn Tomorrow's Labs & Rationales: BEP, CBC JARAD GONSALEZ 09/05/16 1235: Attending MD Review Statement Attending Statement Attending MD Statement: examined this patient, discuss w/resident/PA/HEALTHCARE PROJECT MANAGER, agreed w/resident/PA/HEALTHCARE PROJECT MANAGER, discussed with family, reviewed EMR data (avail), discussed with nursing, discussed with case mgmt, reviewed images, amended to note Attending Assessment/Plan: Patient here treated as COPD exacerbation with IV steroids, taper steroids and c /w her azithromycin. Diabetes uncontrolled and with the steroids on board, Titrate insulin as needed. AG closed but hyperglycemia +. cont current care gi/ dvt prophylaxis
[2016-09-05 16:47] VITALS: BP 130/68
[2016-09-05 23:40] VITALS: BP 126/80
[2016-09-06 07:53] VITALS: BP 130/90
[2016-09-06 08:38] LABS: ABSOLUTE BASOPHIL COUNT 0 /CUMM (0.0-0.2); ABSOLUTE EOSINOPHIL COUNT 0 /CUMM (0.0-0.7); ABSOLUTE GRANULOCYTE CT 10.1 /CUMM (1.4-6.5); ABSOLUTE LYMPH COUNT 1.7 /CUMM (1.2-3.4); ABSOLUTE MONOCYTE COUNT 0.6 /CUMM (0.10-0.60); BASOPHIL % 0.3 % (0.0-2.0); EOSINOPHIL % 0 % (0-5); GRANULOCYTE % 81.4 % (42.2-75.2); HEMATOCRIT 40.1 % (37-47); MEAN CORPUSCULAR HGB 29.8 PG (27.0-31.0); MEAN CORPUSCULAR HGB CONC 32.9 G/DL (33.0-37.0); MEAN CORPUSCULAR VOLUME 90.5 FL (81.0-99.0); MEAN PLATELET VOLUME 8.6 FL (7.4-10.4); PLATELET COUNT 264 /CUMM (130-400); RED BLOOD CELL CT 4.43 /CUMM (4.20-5.40); WHITE BLOOD CELL COUNT 12.4 /CUMM (4.8-10.8)
--- NOTE | 2016-09-06 10:08 | ECHOCARDIOGRAM REPORT ---
SINGH SANTIAGO Age: 61 : 1955 Gender: F Exam Date: 09/05/2016 13:54 Exam Location: [address] Ht (in): 62 Wt (lb): 197 BSA: 2.02 BP: 128 / 80 Ordering Physician: BRIEN HO MD Referring Physician: BRIEN HO MD Technologist: Jamila Lucas [facility] Room Number: 188 Indications: CHEST PAIN Rhythm: Sinus Technical Quality: Fair FINDINGS Left Ventricle Normal size left ventricle. Mild concentric left ventricular hypertrophy. Normal left ventricular ejection fraction visually estimated at >65 %. No obvious regional wall motion abnormalities. Abnormal relaxation filling pattern of the left ventricle for age (stage 1 diastolic dysfunction). Right Ventricle The right ventricle is normal in size and function. Right Atrium The right atrium is normal in size. Left Atrium The left atrium is normal in size. The interatrial septum is intact. Mitral Valve There is mild thickening of the mitral leaflets with good excursion. There is mild to moderate calcification of the mitral annulus posteriorly. Mild mitral regurgitation. Aortic Valve Diffuse thickening of the aortic valve cusps with reduced excursion. [id number] aortic stenosis. No aortic regurgitation. Tricuspid Valve The tricuspid valve is normal in structure and function. There is no tricuspid regurgitation. Unable to estimate the right ventricular systolic pressure. Pulmonic Valve Structurally normal pulmonic valve. There is no pulmonic regurgitation. Pericardium Normal pericardium without effusion. No pleural effusion. Great Vessels The aortic root is upper limits of normal in diameter. The aortic arch and great vessels are grossly normal. CONCLUSIONS Mild concentric left ventricular hypertrophy. Normal left ventricular ejection fraction visually estimated at >65 No obvious regional wall motion abnormalities. Abnormal relaxation filling pattern of the left ventricle for age (stage 1 diastolic dysfunction). The left atrium is normal in size. There is mild thickening of the mitral leaflets with good excursion. There is mild to moderate calcification of the mitral annulus posteriorly. Mild mitral regurgitation. Diffuse thickening of the aortic valve cusps with reduced excursion. MODERATE TO SEVERE AORTIC STENOSIS. No aortic regurgitation. Unable to estimate the right ventricular systolic pressure. The aortic root is upper limits of normal in diameter. Lester Jasmine M.D. (Electronically Signed) Final Date: 06 September 2016 10:07 MEASUREMENTS (Male / Female) Normal Values 2D ECHO LV Diastolic Diameter PLAX 4.7 cm 4.2 - 5.9 / 3.9 - 5.3 cm LV Systolic Diameter PLAX 2.3 cm 2.1 - 4.0 cm LV Fractional Shortening PLAX 51.1 % 25 - 46 % LV Ejection Fraction 2D Teich 82.3 % IVS Diastolic Thickness 1.2 cm LVPW Diastolic Thickness 1.2 cm LV Relative Wall Thickness 0.5 RV Internal Dim ED PLAX 2.1 cm 1.9 - 3.8 cm LVOT Diameter 1.9 cm Aortic Root Diameter 3.7 cm LA Systolic Diameter LX 3.6 cm 3.0 - 4.0 / 2.7 - 3.8 cm LA Volume 31.0 cm 18 - 58 / 22 - 52 cm DOPPLER AV Peak Velocity 389.0 cm/s AV Peak Gradient 60.5 mmHg AV Mean Velocity 300.0 cm/s AV Mean Gradient 39.0 mmHg AV Velocity Time Integral 92.3 cm LVOT Peak Velocity 108.0 cm/s LVOT Peak Gradient 4.7 mmHg LVOT Mean Velocity 74.3 cm/s LVOT Mean Gradient 3.0 mmHg LVOT Velocity Time Integral 29.3 cm LVOT Stroke Volume 83.1 cm AV Area Cont Eq vti 0.9 cm AV Area Cont Eq pk 0.8 cm MV Peak Velocity 130.0 cm/s MV Peak Gradient 6.8 mmHg MV Mean Velocity 86.6 cm/s MV Mean Gradient 3.0 mmHg Mitral E Point Velocity 97.7 cm/s Mitral A Point Velocity 124.0 cm/s Mitral E to A Ratio 0.8 MV PHT Velocity 134.0 cm/s MV Deceleration [place] 560.0 cm/s MV Pressure Half Time 71.8 ms MV Area PHT 3.1 cm MV Deceleration Time 330.0 ms PV Peak Velocity 123.0 cm/s PV Peak Gradient 6.1 mmHg PV Mean Velocity 78.0 cm/s PV Mean Gradient 3.0 mmHg PV Velocity Time Integral 24.7 cm LV E' Lateral Velocity 5.0 cm/s Mitral E to LV E' Lateral Ratio 19.5 LV E' Septal Velocity 6.5 cm/s Mitral E to LV E' Septal Ratio 15.1
--- NOTE | 2016-09-06 11:54 | PN- Housestaff ---
BRIEN HO 09/06/16 1149: Subjective Follow-up For: Acute COPD exacerbation Subjective: This morning patient is alert, awake and oriented. She is feeling improved. Denies any chest pain or discomfort. Review of Systems Constitutional: Reports: see HPI. Objective Last 24 Hrs of Vital Signs/I&O Vital Signs Date Time Temp Pulse Resp B/P B/P Pulse O2 O2 Flow FiO2 Mean Ox Delivery Rate 09/06 0800 95 Room Air 09/06 0753 97.9 77 16 130/90 97 Room Air 09/06 0750 97 Room Air 09/06 0000 Room Air 09/05 2340 98.0 89 16 126/80 94 Room Air 09/05 1723 94 Room Air Room Air 09/05 1647 97.8 76 20 130/68 95 Room Air Intake & Output 09/06 1600 09/06 0800 09/06 0000 Intake Total 400 300 Output Total Balance 400 300 Intake, Oral 400 300 Physical Exam General Appearance: Alert, Oriented X3, Cooperative, No Acute Distress Neck: Supple Cardiovascular: Regular Rate Lungs: mild wheezing bilaterally Abdomen: Normal Bowel Sounds, Soft, No Tenderness Extremities: No Edema Current Medications: Current Medications Sig/Fred Start time Last Medication Dose Route Stop Time Status Admin Albuterol Sulfate 3 ML EVERY 4 HRS/AWAKE 09/03 1200 AC 09/06 INH 0749 Atorvastatin Calcium 20 MG 1700 09/03 1700 AC 09/05 PO 1700 Azithromycin 250 MG DAILY 09/04 1000 AC 09/06 PO 0849 Benzonatate 100 MG TID 09/04 2200 AC 09/06 PO 0849 Budesonide/ 2 PUF BID 09/03 1000 AC 09/06 Formoterol Fumarate INH 0851 Guaifenesin 10 ML ONCE ONE 09/06 0330 DC 09/06 PO 09/06 0331 0341 Guaifenesin 600 MG BID 09/03 1000 AC 09/06 PO 0849 Heparin Sodium 5,000 UNIT Q8 09/03 1400 AC 09/06 (Porcine) SC 0559 Insulin Aspart 0 TIDAC 09/03 1200 AC 09/06 SC 0743 Insulin Detemir 30 UNITS AT BEDTIME 09/03 2200 AC 09/05 SC 2133 Ipratropium [place] 2.5 ML EVERY 4 HRS/AWAKE 09/03 1200 AC 09/06 INH 0749 Loratadine 10 MG DAILY 09/04 1015 AC 09/06 PO 0849 Methylprednisolone 40 MG Q12H 09/04 1800 DC 09/06 IV 0555 Nystatin 5 ML 4 TIMES/DAY 09/05 1034 AC 09/06 PO 0851 Prednisone 40 MG DAILY 09/07 1000 AC PO Pregabalin 75 MG BID 09/03 1000 AC 09/06 PO 0849 Last 24 Hrs of Lab/Tomasz Results Last 24 Hrs of Labs/Mics: Laboratory Tests 09/06/16 0607: Anion Gap 15, Estimated GFR > 60, BUN/Creatinine Ratio 31.7 H, CBC w Diff NO MAN DIFF REQ, RBC 4.43, MCV 90.5, MCH 29.8, RDW 13.0, MPV 8.6, Gran % 81.4 H, Lymphocytes % 13.6 L, Monocytes % 4.7, Eosinophils % 0, Basophils % 0.3, Absolute Granulocytes 10.1 H, Absolute Lymphocytes 1.7, Absolute Monocytes 0.6, Absolute Eosinophils 0, Absolute Basophils 0, PUBS MCHC 32.9 L Assessment/Plan Assessment: 60 year old woman, former smoker, past medical history significant for insulin dependant diabetes mellitus, COPD, history of asthma followed by Dr. Warren, no h/o of previous intubation in the past, history of pancreatic cyst, JASMINE and hypertension. Problem list 1. Acute COPD exacerbation 2. Leukocytosis. Likely due to steroids 3. Hyperglycemia. Blood sugar still in 300s 4. Elevated LFTs. Patien has history of fatty liver disease and follows a condenser cleaner as outpt. Abdominal ultrasound shows hepatic steatosis or developing fibrosis PLAN * Monitor vitals closely * continue supplemental oxygen * Keep oxygen saturation more than 92% * Continue TRC nebs * Switched IV Solu-Medrol to by mouth prednisone today * Continue by mouth Zithromax for 5 days * Continue other home medications. Holding metformin and Trulicity * Accu-Cheks before each meal and at bedtime. Continue NovoLog insulin sliding scale * Diabetic diet * Full code According to her motor builder winder recommendations if she goes home without O2 then we can resume her Truliicity and metformin and send her on Levemir 30 units at bedtime. Problem List: 1. COPD (chronic obstructive pulmonary disease) Pain Ratin Pain Location: none Pain Goal: Remain pain free Pain Plan: tylenol Tomorrow's Labs & Rationales: none DVT/Prophylaxis: pharmacological ANH BAPTISTEABEL 09/06/16 1425: Attending MD Review Statement Attending Statement Attending MD Statement: examined this patient, discuss w/resident/PA/EMBEDDED SOFTWARE ARCHITECT, agreed w/resident/PA/EMBEDDED SOFTWARE ARCHITECT, reviewed EMR data (avail), discussed with nursing, discussed with case mgmt Attending Assessment/Plan: Patient is doing much better today. Her O2 sats have been stable on room air and she's now on by mouth prednisone. She is a 61-year-old with diabetes, who is here with an acute COPD exacerbation with no evidence of pneumonia. We are treating her for a bacterial bronchitis with azithromycin and the plan is a prednisone taper -40mg with a taper of 10 mg per day on discharge. I reviewed her echo results and given the moderate to severe aortic stenosis on the echo I called a cardiology consult. Dr. Gerosn Peace spoke to the patient and me and he is going to follow her closely in the office and schedule likely a stress test once the COPD exacerbation is resolved. We also spoke to her outpatient motor builder winder about the diabetic regimen on discharge especially given that her sugars are uncontrolled here on the steroids. The outpatient motor builder winder Dr. Perez at [facility] recommended that we discharge her on Levemir, Trulicity and metformin and she is going to follow her up within the week. We also scheduled an appointment for the patient to Dr. Warren and she will be seen in the office later this week. Total time spent with discharge was 33 minutes.
--- NOTE | 2016-09-06 12:48 | Cons- Cardiology ---
General Information and HPI Consulting Request Date of Consult: 09/06/16 Requested By: ABEL KAMARA MD Reason for Consult: Abnormal echocardiogram Source of Information: patient, old records Exam Limitations: no limitations History of Present Illness: The patient is a 61-year-old female whose main underlying medical issue is asthmatic bronchitis and COPD, followed by Dr. Warren. she has had numerous episodes of asthma and COPD but only a few hospitalizations for this. She was admitted a few days ago with exacerbation of COPD and asthma. She is feeling much better and is ready for discharge from the standpoint of her presenting illness. Echocardiogram was obtained because of some nonspecific T-wave changes on her electrocardiogram and documented significant aortic stenosis. The patient has a history of a heart murmur, she states dating back to when she was 18 years old. This has been heard on multiple occasions but apparently no workup has been done in the past. The patient has mild dyspnea on exertion at baseline, which is exacerbated when she has her asthmatic/bronchitic attacks. She does not describe chest pain at rest or on exertion, palpitations, dizziness, syncope, edema. Allergies/Medications Allergies: Coded Allergies: Penicillins (Severe, RASH 08/15/15) Home Med List: Albuterol Sulfate 2.5 MG/3 ML VIAL.NEB 1 Vial INH/EMMA Q4P PRN BREATHING PROBLEMS (Reported) Azithromycin 250 MG TABLET 1 TAB PO DAILY COPD Budesonide/Formoterol Fumarate (Symbicort 160-4.5 Mcg Inhaler) 10.2 GM HFA.AER.AD 2 PUF INH BID ASTHMA Chlorthalidone 25 MG TABLET 1 TAB PO DAILY HEART (Reported) Dulaglutide (Trulicity) 1.5 MG/0.5 ML PEN.INJCTR 1.5 MG SC QWK DIABETES ( Reported) Guaifenesin (Guaifenesin ER) 600 MG TAB.ER.12H 600 MG PO BID COUGH Insulin Detemir (Levemir) 100 UNIT/ML VIAL 30 UNITS SC AT BEDTIME DIABETES Ipratropium/Albuterol Sulfate (Combivent Respimat Inhal [place]) 4 GM MIST.INHAL 2 PUFF PO BID BREATHING PROBLEMS (Reported) Losartan Potassium 50 MG TABLET 1 TAB PO DAILY HTN (Reported) Metformin HCl (Metformin HCl ER) 750 MG TAB.ER.24H 2 TAB PO QPM DIABETES ( Reported) Montelukast Sodium 10 MG TABLET 10 MG PO AT BEDTIME ASTHMA Nystatin 100,000 UNIT/ML ORAL.SUSP 5 ML PO 4 TIMES/DAY oral thrush Prednisone 10 MG TABLET 1 TAB PO SI COPD 4 TABS X 3 DAYS 3 TABS X 3 DAYS 2 TABS X 3 DAYS 1 TAB X 3 DAYS AND THEN STOP Rosuvastatin Calcium (Crestor) 40 MG TABLET 1 TAB PO DAILY HYPERCHOLESTROLEMIA (Reported) Current Medications: Current Medications Sig/Fred Start time Last Medication Dose Route Stop Time Status Admin Albuterol Sulfate 3 ML EVERY 4 HRS/AWAKE 09/03 1200 AC 09/06 INH 1154 Atorvastatin Calcium 20 MG 1700 09/03 1700 AC 09/05 PO 1700 Azithromycin 250 MG DAILY 09/04 1000 AC 09/06 PO 0849 Benzonatate 100 MG TID 09/04 2200 AC 09/06 PO 0849 Budesonide/ 2 PUF BID 09/03 1000 AC 09/06 Formoterol Fumarate INH 0851 Guaifenesin 10 ML ONCE ONE 09/06 0330 DC 09/06 PO 09/06 0331 0341 Guaifenesin 600 MG BID 09/03 1000 AC 09/06 PO 0849 Heparin Sodium 5,000 UNIT Q8 09/03 1400 AC 09/06 (Porcine) SC 0559 Insulin Aspart 0 TIDAC 09/03 1200 AC 09/06 SC 1241 Insulin Detemir 30 UNITS AT BEDTIME 09/03 2200 AC 09/05 SC 2133 Ipratropium [place] 2.5 ML EVERY 4 HRS/AWAKE 09/03 1200 AC 09/06 INH 1154 Loratadine 10 MG DAILY 09/04 1015 AC 09/06 PO 0849 Methylprednisolone 40 MG Q12H 09/04 1800 DC 09/06 IV 0555 Nystatin 5 ML 4 TIMES/DAY 09/05 1034 AC 09/06 PO 0851 Prednisone 40 MG DAILY 09/07 1000 AC PO Pregabalin 75 MG BID 09/03 1000 AC 09/06 PO 0849 Review of Systems Review of Systems: She has no other complaints in the review of systems. 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 Home Who Do You Live With? spouse Services at Home: None Primary Language: [place] Smoking Status: Former Smoker ETOH Use: occasional use Functional Ability ADLs Independent: dressing, eating, toileting, bathing. Ambulation: independent IADLs Independent: shopping, housework, finances, food prep, telephone, transportation , medication admin. Exam & Diagnostic Data Vital Signs and I&O Vital Signs Date Time Temp Pulse Resp B/P B/P Pulse O2 O2 Flow FiO2 Mean Ox Delivery Rate 09/06 0800 95 Room Air 09/06 0753 97.9 77 16 130/90 97 Room Air 09/06 0750 97 Room Air 09/06 0000 Room Air 09/05 2340 98.0 89 16 126/80 94 Room Air 09/05 1723 94 Room Air Room Air 09/05 1647 97.8 76 20 130/68 95 Room Air Intake & Output 09/06 1600 09/06 0800 09/06 0000 09/05 1600 09/05 0800 09/05 0000 Intake Total 400 300 800 400 325 Output Total 350 Balance 400 300 800 50 325 Intake, Oral 400 300 800 400 325 Number 1 Bowel Movements Output, Urine 350 Physical Exam: She is an obese middle-aged female, very pleasant, in no acute distress. HEENT exam is normal Neck veins not distended Carotids mildly decreased upstroke Chest reveals some mild expiratory wheezing Heart reveals PMI is not palpable, there is a grade 3/6 harsh systolic ejection murmur at the base. Abdomen is benign Extremities reveal good pulses and no edema Labs/Tomasz Results: Laboratory Tests 09/06 09/05 0607 0607 Chemistry Sodium (137 - 145 mmol/L) 134 L Potassium (3.5 - 5.1 mmol/L) 4.5 Chloride (98 - 107 mmol/L) 92 L Carbon Dioxide (22 - 30 mmol/L) 27 Anion Gap (5 - 16) 15 BUN (7 - 17 mg/dL) 19 H Creatinine (0.5 - 1.0 mg/dL) 0.6 Estimated GFR (>60 ml/min) > 60 BUN/Creatinine Ratio (7 - 25 %) 31.7 H Total Bilirubin (0.2 - 1.3 mg/dL) 1.0 Direct Bilirubin (< 0.4 mg/dL) 0.7 H AST (14 - 36 U/L) 71 H ALT (9 - 52 U/L) 128 H Alkaline Phosphatase (<127 U/L) 84 Total Protein (6.3 - 8.2 g/dL) 6.5 Albumin (3.5 - 5.0 g/dL) 4.1 Hematology CBC w Diff NO MAN DIFF REQ WBC (4.8 - 10.8 /CUMM) 12.4 H RBC (4.20 - 5.40 /CUMM) 4.43 Hgb (12.0 - 16.0 G/DL) 13.2 Hct (37 - 47 %) 40.1 MCV (81.0 - 99.0 FL) 90.5 MCH (27.0 - 31.0 PG) 29.8 RDW (11.5 - 14.5 %) 13.0 Plt Count (130 - 400 /CUMM) 264 MPV (7.4 - 10.4 FL) 8.6 Gran % (42.2 - 75.2 %) 81.4 H Lymphocytes % (20.5 - 51.1 %) 13.6 L Monocytes % (1.7 - 9.3 %) 4.7 Eosinophils % (0 - 5 %) 0 Basophils % (0.0 - 2.0 %) 0.3 Absolute Granulocytes (1.4 - 6.5 /CUMM) 10.1 H Absolute Lymphocytes (1.2 - 3.4 /CUMM) 1.7 Absolute Monocytes (0.10 - 0.60 /CUMM) 0.6 Absolute Eosinophils (0.0 - 0.7 /CUMM) 0 Absolute Basophils (0.0 - 0.2 /CUMM) 0 PUBS MCHC (33.0 - 37.0 G/DL) 32.9 L Diagnostic Data EKG Results Several EKGs have been done. They all show probable LVH. The most recent EKGs also show some anterior T-wave changes. CXR Results PATIENT: SINGH SANTIAGO PRESENT AGE: 60 PATIENT ACCOUNT NO: [id number] : 59 LOCATION: [facility] ORDERING PHYSICIAN: ZAHRA VALERA MD SERVICE DATE: 09/03/16 EXAM TYPE: RAD - XRY-PORTABLE CHEST XRAY EXAMINATION: XR PORTABLE CHEST CLINICAL INFORMATION: Shortness of breath, wheezing, history of asthma COMPARISON: 08/18/2015 TECHNIQUE: Portable frontal view of the chest was obtained. FINDINGS: Lung volumes are symmetric. No focal consolidation is seen. There is prominence of the central interstitium, which could reflect sequelae of bronchitis. No evidence of pneumothorax, pleural effusion, or overt pulmonary edema. The cardiac silhouette is prominent. No acute osseous findings are seen. IMPRESSION: No focal consolidation. Prominent central interstitium may reflect acute or chronic bronchitis; mild central congestion would be difficult to exclude in the proper clinical setting. DICTATED BY: GORDON OCONNOR MD DATE/TIME DICTATED:09/03/16436 PRESS SUPERVISOR:REBEKA DATE/TIME TRANSCRIBED:09/03/16436 CONFIDENTIAL, DO NOT COPY WITHOUT APPROPRIATE AUTHORIZATION. <Electronically signed in Other Vendor System> SIGNED BY: GORDON OCONNOR MD 09/03/16 2365 Other Results CONCLUSIONS Mild concentric left ventricular hypertrophy. Normal left ventricular ejection fraction visually estimated at >65 No obvious regional wall motion abnormalities. Abnormal relaxation filling pattern of the left ventricle for age (stage 1 diastolic dysfunction). The left atrium is normal in size. There is mild thickening of the mitral leaflets with good excursion. There is mild to moderate calcification of the mitral annulus posteriorly. Mild mitral regurgitation. Diffuse thickening of the aortic valve cusps with reduced excursion. MODERATE TO SEVERE AORTIC STENOSIS. No aortic regurgitation. Unable to estimate the right ventricular systolic pressure. The aortic root is upper limits of normal in diameter. Lester Jasmine M.D. (Electronically Signed) Final Date: 06 September 2016 10:07 Assessment/Plan Assessment/Plan This patient presented with exacerbation of COPD/asthma which has significantly improved. She was noted to have a systolic murmur and an echocardiogram documented moderate to severe aortic stenosis. She has been previously aware of a murmur but did not have this diagnosis in the past. She noted to me that she was told she might have had scarlet fever as a child. Her echocardiogram documented moderate to severe aortic stenosis with a peak gradient of 60 mmHg, a mean gradient of 39 mmHg and calculated valve area of just under 1 cm. The etiology of her aortic stenosis at her age is most likely bicuspid aortic valve, although rheumatic valvular disease cannot be ruled out, especially considering her past history. The echocardiogram was not technimally definitive in determining the underlying anatomy of the valve. The patient does not appear to be significantly symptomatic from her aortic stenosis, as most of her symptoms can be attributed to her underlying pulmonary issues. However I would like to further assess her when she is back at her baseline level of activity and pulmonary function. She has agreed to follow-up as an outpatient. I might consider a stress test in the future to assess her functional capacity. In any case she will need to be followed closely with regards to her aortic stenosis, as she already has a significant aortic gradient. At this time there is no specific treatment and she is not a candidate for intervention on her aortic valve at this level, but again we will need to follow her closely for this. Copies To: SIRIA BAPTISTE,LESTER Alexandre Consult Acknowledgment - Thank you for your consult request.
[2016-09-06] MEDS ORDERED: AZITHROMYCIN250 M1 PO ×2 (13:37→14:06)
[2016-09-06] MEDS ORDERED: NYSTATIN100000 UNI PO ×2 (13:37→14:06)
[2016-09-06] MEDS ORDERED: PREDNISONE10 M2 PO (14:06)
[2016-09-06] MEDS ORDERED: LEVEMIR100 UNIT/1 SC (14:06)
--- NOTE | 2016-09-06 21:44 | Event Note ---
Event Note Event Note: The nurse notified, that the pt called with a request to have the levemir pen instead of the levemir vials. Unfortunately, she is not comfortable to use the vial and needles; Called the pt and explained to her that the levemir flextouch and needes would be called in. She would call the pharmacy, and make sure that she could pick the order. Explained to her that she can pick the prescription, and she is too tired to pick the prescriptions. If she needs insulin injection or be symptomatic or have high blood sugars, she returns to the ED for medication.
== END 2016-09-06 14:40 | DRG 191 ==
LOC: ERH 03:21 → ERHI 04:59 → 1NO 04:59 → CANRESERV 05:44 → ENRESERV 05:44 → 1NO 06:34 → ENPENDDIS 09-06 14:08 → 1NO 09-06 14:40
PROVIDERS: Emergency Medicine; Internal Medicine; Student in an Organized Health Care Education/Training Program; ADMIT Student in an Organized Health Care Education/Training Program
DX: J44.1 Chronic obstructive pulmonary disease with (acute) exacerbation (principal); E87.2 Acidosis; K75.81 Nonalcoholic steatohepatitis (NASH); E11.65 Type 2 diabetes mellitus with hyperglycemia; Z79.4 Long term (current) use of insulin; D72.829 Elevated white blood cell count, unspecified; I35.0 Nonrheumatic aortic (valve) stenosis; Z87.891 Personal history of nicotine dependence
CPT/HCPCS: 1NP; 36415; 81001; 82436; 87040; 87070; 93005; 93010; 93306; 94799; 96374; 96375; J0456; J1644; J1815; J2920; J2930; J3490; J7040